=== PATIENT | male | born 1980 | race Caucasian/White ===

== ENCOUNTER 2022-09-03 17:59 | Emergency (ER) | payer BC ==
[2022-09-03] MEDS ORDERED: Sodium Chloride 0.9% 1,000 ML IV ONE ×2 (18:25→22:50)
[2022-09-03 18:51] LABS: BLOOD UREA NITROGEN,BUN 22 mg/dL (7.0-18.0); CARBON DIOXIDE,CO2 17.7 mmol/L (21.0-32.0); CHLORIDE,CL 103 mmol/L (98-107); GLUCOSE RANDOM 139 mg/dL (74-106); POTASSIUM,K 4.3 mmol/L (3.5-5.1); SODIUM,NA 138 mmol/L (136-148)
[2022-09-03 18:58] LABS: ESTIMATED GFR 50 mL/min (>60)
[2022-09-03 19:09] LABS: CORONAVIRUS COVID-19 NAA NEGATIVE (NEGATIVE); INFLUENZA A NAA NEGATIVE (NEGATIVE); INFLUENZA B NAA NEGATIVE (NEGATIVE); RESPIRATORY SYNCYTIAL VIR NAA NEGATIVE (NEGATIVE)
[2022-09-03] MEDS ORDERED: Iopamidol 755 MG/ML 500 ML Multipack Bottle IVPUSH ONE (21:13)
== END 2022-09-04 01:05 | disposition home or self-care (01) ==
LOC: MW.ED 17:59
DX: K85.90 Acute pancreatitis without necrosis or infection, unspecified (principal); E86.0 Dehydration; K76.9 Liver disease, unspecified; Z20.822 Contact with and (suspected) exposure to COVID-19
CPT/HCPCS: 0241U; 36415; 71045; 71275; 74177; 80053; 83690; 83880; 84484; 85025; 85379; 86308; 93005; 96360; 99285; J7030; Q9967; 93010; 99284

== ENCOUNTER 2022-09-04 05:41 | Emergency (ER) | payer BC ==
[2022-09-04] MEDS ORDERED: Sodium Chloride 0.9% 10 ML Syringe FLUSH PRN (05:51)
[2022-09-04] MEDS ORDERED: Sodium Chloride 0.9% 2.5 ML Syringe FLUSH PRN (05:51)
[2022-09-04] MEDS ORDERED: Pantoprazole 40 MG in Sodium Chloride 0.9% 10 ML IVPUSH ONE (05:52)
[2022-09-04] MEDS ORDERED: Octreotide 500 MCG in Sodium Chloride 0.9% 495 ML IV SCH (06:00)
[2022-09-04 06:28] LABS: CARBON DIOXIDE,CO2 15.1 mmol/L (21.0-32.0); POTASSIUM,K 4.4 mmol/L (3.5-5.1)
[2022-09-04] MEDS ORDERED: Octreotide 100 MCG/1 ML Amp IV ONE (06:45)
[2022-09-04] MEDS ORDERED: Pantoprazole 80 MG in Sodium Chloride 0.9% 100 ML IV ONE (07:30)
== END 2022-09-04 08:38 ==
LOC: MW.ED 05:41
DX: K92.2 Gastrointestinal hemorrhage, unspecified (principal); I10 Essential (primary) hypertension; Z79.899 Other long term (current) drug therapy
CPT/HCPCS: 36415; 80053; 83690; 85027; 85610; 86850; 86900; 86901; 96365; 96366; 96368; 96376; 99285; C9113; J2354; J3490; J7040; 99284